=== PATIENT | male | born 1980 | race Caucasian/White ===

== ENCOUNTER 2023-07-29 09:20 | Emergency (ER) | payer SELFPAY ==
[2023-07-29 09:27] VITALS: BP 111/76; PULSE 64; RESP 18; TEMP 36.8; O2SAT 99; BMI 20.3
--- NOTE | 2023-07-29 09:33 | XR_ITS ---
The [address] [address] Patient Name: NIKOS NGUYEN MRN: [id number] date: 1980 Sex: M Assigned Patient Location: ER Current Patient Location: ER Accession/Order Number: [id number] Exam Date: 07/29/2023 09:53 Report Date: 07/29/2023 10:18 At the request of: TESS SHIRLEY Procedure: XR finger RT min 2V PROCEDURE: XR finger RT min 2V COMPARISON: None. HISTORY: Right thumb trauma FINDINGS: BONES:No fracture, acute abnormality, or significant arthropathy. SOFT TISSUES:Soft tissue swelling of the thumb with subcutaneous emphysema EFFUSION:None visible. OTHER: Negative. XR/XR finger RT min 2V IMPRESSION: No acute fracture Electronically authenticated by: PER LIMON Date: 07/29/2023 10:18
--- NOTE | 2023-07-29 09:39 | ED_ITS ---
HPI - Extremity Injury (Upper) General Chief Complaint: Extremity Injury, Upper Stated Complaint: UPPER EXTREMITY INJURY R HAND Time Seen by Provider: 07/29/23 09:33 Source: patient Mode of arrival: walk-in Limitations: no limitations History of Present Illness HPI narrative: Patient here with an injury to his right thumb. He is right-hand dominant. He did this at home when his dog actually pushed the car door closed on his finger. He said the nailbed was lifted about one quarter of the way off its base. He said he just pushed it back down. He wrapped it up and came to the ER. He says he needs a tetanus shot. He has no other complaints. 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 Related Data Home Medications Medication Instructions Recorded Confirmed No Known Home Medications 07/29/23 07/29/23 Allergies Allergy/AdvReac Type Severity Reaction Status Date / Time Penicillins AdvReac Severe Verified 07/29/23 09:27 [facility] Social History Smoking status: Current every day smoker Exam Narrative Exam Narrative: Well-hydrated well-nourished in moderate amount of discomfort. He has a self applied dressing over his right thumb. The dressing was removed by myself and the nursing staff. The bleeding has been controlled. On the volar aspect there appears to be a crease consistent with a clean incisional type laceration but we did not manipulate the wound initially. The nail is intact but again it was not attempted to be manipulated. We will get an x-ray and then after soaking and cleansing the area evaluate the wound Constitutional Vital Signs, click to edit/add: Last Vital Signs Temp 98.2 F 07/29/23 09:27 Pulse 64 07/29/23 09:27 Resp 18 07/29/23 09:27 BP 111/76 07/29/23 09:27 Pulse Ox 99 07/29/23 09:27 O2 Del Method Room Air 07/29/23 09:27 Course Vital Signs Vital signs: Vital Signs Temperature 98.2 F 07/29/23 09:27 Pulse Rate 64 07/29/23 09:27 Respiratory Rate 18 07/29/23 09:27 Blood Pressure 111/76 07/29/23 09:27 Pulse Oximetry 99 07/29/23 09:27 Oxygen Delivery Method Room Air 07/29/23 09:27 Temperature 98.2 F 07/29/23 09:27 Pulse Rate 64 07/29/23 09:27 Respiratory Rate 18 07/29/23 09:27 Blood Pressure 111/76 07/29/23 09:27 Pulse Oximetry 99 07/29/23 09:27 Oxygen Delivery Method Room Air 07/29/23 09:27 MDM - Extremity Injury (Upper) MDM Narrative Medical decision making narrative: After soaking the wound and establishing no fracture on the x-rays this wound was evaluated. It is full-thickness on the volar surface likely incisional wound. So after Betadine prep the wound was sterilely prepped and draped in usual fashion anesthetized with lidocaine 1% without epi. Wound was then closed with 5, 4-0 nylon sutures. Wound approximation was good dressing and splint was applied. Discharge Plan Discharge Chief Complaint: Extremity Injury, Upper Clinical Impression: Laceration of right thumb Patient Disposition: Home, Self-Care Time of Disposition Decision: 10:27 Prescriptions / Home Meds: No Action No Known Home Medications Additional Instructions: Remove sutures 10 days/cephalexin/return for any evidence of infection Stand Alone Forms: Portal Instructions Referrals: Physician,Non-Staff, MD [Primary Care Provider] - 1 week
[2023-07-29] MEDS: SODIUM CHLORIDE 0.9% IRRIG SOLUTION 1,000 ML BOTTLE 1000 ML IRR (09:50)
[2023-07-29] MEDS: ADACEL DIPH,PERTUSS(ACELL),TET VAC/PF 0.5 ML ADULT SYRINGE IM (10:31)
[2023-07-29] MEDS: LIDOCAINE HCL 2% 400 MG/20 ML MDV 15 ML INJ (10:31)
== END 2023-07-29 10:46 | disposition home or self-care (01) ==
PROVIDERS: Emergency Provider Emergency Medicine Emergency Medical Services
DX: S61.011A Laceration without foreign body of right thumb without damage to nail, initial encounter (principal); W23.0XXA Caught, crushed, jammed, or pinched between moving objects, initial encounter; Z23 Encounter for immunization; F17.210 Nicotine dependence, cigarettes, uncomplicated
CPT/HCPCS: 12001; 73140; 90471; 90715; 99284

== ENCOUNTER 2024-10-04 12:16 | Emergency (ER) | payer SELFPAY ==
[2024-10-04 12:22] VITALS: BP 106/71; PULSE 62; TEMP 36.9; O2SAT 100; BMI 20.9
--- NOTE | 2024-10-04 12:28 | ED.GENADUL1 ---
HPI HPI - General Adult General Chief complaint: Extremity Injury, Lower Stated complaint: LOWER EXTREMITY POSSIBLE BROKEN TOE Time Seen by Provider: 10/04/24 12:19 Source: patient Mode of arrival: walk-in Limitations: no limitations History of Present Illness HPI narrative: 44-year-old male presents for pain to his right 3rd, 4th and 5th toes. He was cutting wood and a log fell on this area 45 minutes ago. No other injury was sustained. The pain is severe and continuous. It hurts more when he walks on it. Related Data Previous Rx's ?Medication ?Instructions ?Recorded ibuprofen 800 mg tablet 800 mg PO Q8H PRN pain #20 tabs 10/04/24 Allergies Allergy/AdvReac Type Severity Reaction Status Date / Time Penicillins AdvReac Severe Verified 07/29/23 09:27 Opioid HPI Opioid Management Most Recent Opioid Data: Last Pain Scale 8 10/04/24 12:34 10/04/24 Review of Systems ROS Narrative A ten point review of systems is negative except as noted above. PFSH PFSH Social History Smoking status: Current every day smoker Exam Narrative Exam Narrative: Nurses note and vital signs reviewed and patient is not hypoxic. General: The patient appears well and in no apparent distress. Skin: Warm, dry, no pallor noted. There is no rash noted. Head: Normocephalic, atraumatic Eye: Normal conjunctiva, no drainage Ears, Nose, Mouth, and Throat: oral mucosa is moist. Nares patent. Cardiovascular: Regular Rate and Rhythm Respiratory: Patient is in no distress, no accessory muscle use Back: non-tender GI: Nontender Musculoskeletal: The right foot is examined. The skin is intact. He has tenderness at the 3rd, 4th and 5th toes and the fourth toe appears mildly swollen. Neurological: A&O, normal speech Psychiatric: Cooperative Constitutional Vital Signs, click to edit/add: Last Vital Signs Temp 98.4 F 10/04/24 12:22 Pulse 62 10/04/24 12:22 Resp 18 10/04/24 12:22 BP 106/71 10/04/24 12:22 Pulse Ox 100 10/04/24 12:22 O2 Del Method Room Air 10/04/24 12:22 Course Vital Signs Vital signs: Vital Signs Temperature 98.4 F 10/04/24 12:22 Pulse Rate 62 10/04/24 12:22 Respiratory Rate 18 10/04/24 12:22 Blood Pressure 106/71 10/04/24 12:22 Pulse Oximetry 100 10/04/24 12:22 Oxygen Delivery Method Room Air 10/04/24 12:22 Temperature 98.4 F 10/04/24 12:22 Pulse Rate 62 10/04/24 12:22 Respiratory Rate 18 10/04/24 12:22 Blood Pressure 106/71 10/04/24 12:22 Pulse Oximetry 100 10/04/24 12:22 Oxygen Delivery Method Room Air 10/04/24 12:22 Medical Decision Making MDM Narrative Medical decision making narrative: X-ray shows no fractures per radiologist. He is placed in a postop shoe, application checked by me and found to be appropriate, he is neurovascular intact. He was prescribed ibuprofen. Treatment diagnosis and follow-up were discussed with the patient Differential Diagnosis Differential Diagnosis: Contusion, fracture Imaging Data Right foot x-ray: Radiologist's impression: No acute bony process Discharge Plan Discharge Chief Complaint: Extremity Injury, Lower Clinical Impression: Contusion of toe Patient Disposition: Home, Self-Care Time of Disposition Decision: 13:05 Condition: Good Mode of Transportation: Private Vehicle Prescriptions / Home Meds: New ibuprofen 800 mg tablet 800 mg PO Q8H PRN (Reason: pain) Qty: 20 0RF Print Language: [place] Instructions: Contusion in Adults (ED) Referrals: Physician,Non-Staff, MD [Primary Care Provider] - 1 week
[2024-10-04 13:09] VITALS: BP 134/75; PULSE 84; O2SAT 99
== END 2024-10-04 13:18 | disposition home or self-care (01) ==
PROVIDERS: Emergency Provider Emergency Medicine
DX: S90.121A Contusion of right lesser toe(s) without damage to nail, initial encounter (principal); W22.8XXA Striking against or struck by other objects, initial encounter
CPT/HCPCS: 73630; 99283